=== PATIENT | male | born 2000 | race African-American/Black ===

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

== ENCOUNTER 2022-09-04 17:42 | Emergency (ER) | payer OTHER, BC ==
[~2022-09-04] VITALS: Ht 185.4 cm; Wt 67.0 kg
[2022-09-04] MEDS ORDERED: cyclobenzaprine 10mg tablet PO ONE (19:55)
[2022-09-04] MEDS ORDERED: ibuprofen tablet 400 MG TABLET PO ONE (19:55)
[2022-09-04] MEDS ORDERED: IBUP-1984 PO (20:10)
[2022-09-04] MEDS ORDERED: CYCL-1 PO (20:10)
[2022-09-04 20:36] VITALS: BP 128/67
== END 2022-09-05 | disposition home or self-care (01) ==
LOC: ER 21:45
DX: M54.59 Other low back pain (principal); R07.81 Pleurodynia; Z79.899 Other long term (current) drug therapy; V87.7XXA Person injured in collision between other specified motor vehicles (traffic), initial encounter; Y93.89 Activity, other specified; Y92.89 Other specified places as the place of occurrence of the external cause; Y99.8 Other external cause status
CPT/HCPCS: 71045; 99283